=== PATIENT | female | born 1965 ===

== ENCOUNTER 2018-01-09 16:40 | Emergency (ER) | payer SELFPAY ==
[2018-01-09 17:55] VITALS: RESP 18
--- NOTE | 2018-01-09 18:05 | ED PDOC ---
Arrival/HPI - General Chief Complaint: Chest Pain Time Seen by Provider: 01/09/18 17:15 Historian: Patient EM Caveat: Acuity of Condition - History of Present Illness Narrative History of Present Illness (Text): 01/09/18 17:59 Pt is a 52 yr old female with HTN and Psoriasis, who presents today with dizziness, chest and neck pain on and off for the past week. Pt reports that she has felt weakness associated with the neck pain and chest pain feels heavy at times typically at rest and better on exertion. She reports that she lost her spouse suddenly last year around this time and was in the [facility] recently to visit his grave site. Pt becomes very emotional as she talks about her loss and states she is still very sad. Denies change in appetite fever, shortness of breath, LE edema, GIB, dysuria, tinnitus, back or neck pathology, syncope, nausea, vomiting or diarrhea. Time/Duration: 1 week Symptom Onset: Gradual Symptom Course: Unchanged Severity Level: 3 Activities at Onset: Rest Context: Home Past Medical History - Provider Review Nursing Documentation Reviewed: Yes - Travel History Have you recently traveled outside [place] w/in the past 3 mons?: No - Cardiac Hx Hypertension: Yes - Psychiatric Hx Substance Use: No - Anesthesia Hx Anesthesia: No Hx Anesthesia Reactions: No Hx Malignant Hyperthermia: No Family/Social History - Physician Review Nursing Documentation Reviewed: Yes Family/Social History: Unknown Family HX Smoking Status: Never Smoked Hx Alcohol Use: No Hx Substance Use: No Allergies/Home Meds Allergies/Adverse Reactions: Allergies No Known Allergies Allergy (Verified 01/09/18 17:42) Home Medications: Home Meds Medication Instructions Recorded Confirmed Aspirin [Ecotrin] 81 mg PO DAILY 01/09/18 01/09/18 Enalapril Maleate [Vasotec] 2.5 mg PO DAILY 01/09/18 01/09/18 Vit D3-Vit K/Berberine/Hops 1 tab PO QWK 01/09/18 01/09/18 [Ostera Tablet] Review of Systems - Review of Systems Constitutional: Normal, Fatigue Eyes: Normal. absent: Vision Changes ENT: Normal. absent: Tinnitus Respiratory: Normal Cardiovascular: Chest Pain. absent: Palpitations, Edema, Calf Pain Gastrointestinal: Normal Genitourinary Female: Normal Musculoskeletal: Normal Skin: Normal Neurological: Headache, Dizziness Endocrine: Normal Hemo/Lymphatic: Normal Psychiatric: Normal, Anxiety Physical Exam Vital Signs Reviewed: Yes Vital Signs Temp Pulse Resp BP Pulse Ox 01/09/18 20:54 98 F 85 18 122/84 95 01/09/18 17:51 104 H 18 161/99 H 98 Temperature: Afebrile Blood Pressure: Hypertensive Pulse: Tachycardic Respiratory Rate: Normal Appearance: Positive for: Well-Appearing, Non-Toxic, Comfortable Pain Distress: Mild Mental Status: Positive for: Alert and Oriented X 3 - Systems Exam Head: Present: Atraumatic, Normocephalic Pupils: Present: PERRL Extroacular Muscles: Present: EOMI Conjunctiva: Present: Normal Mouth: Present: Moist Mucous Membranes Neck: Present: Normal Range of Motion Respiratory/Chest: Present: Clear to Auscultation, Good Air Exchange. No: Respiratory Distress, Accessory Muscle Use Cardiovascular: Present: Regular Rate and Rhythm, Normal S1, S2. No: Murmurs Abdomen: No: Tenderness, Distention, Peritoneal Signs Back: Present: Normal Inspection Upper Extremity: Present: Normal Inspection. No: Cyanosis, Edema Lower Extremity: Present: Normal Inspection. No: Edema Neurological: Present: GCS=15, CN II-XII Intact, Speech Normal Skin: Present: Warm, Dry, Normal Color. No: Rashes Psychiatric: Present: Alert, Oriented x 3, Normal Insight, Normal Concentration Medical Decision Making ED Course and Treatment: 01/09/18 18:05 Impression Pt is a 52 yr old female with HTN and Psoriasis, who presents today with dizziness, chest and neck pain on and off for the past week. On exam, pt is emotional about her visit to the [facility] for the [facility] of bre who passed last year. She appears somewhat anxious duruing the history; no significant findings on exam; Homans sign neg and no calf tenderness ; lungs ctab and no CVA tenderness; pulses in all extremities full 2+ Working Dx: ACS, PE, infectious process ( ie UTI), electrolyte imbalance, anxiety Wells Score for PE: 3 (tachy and immobilization ie travel) PE unlikely Plan Chest pain w/u labs CXR ECG Assess and Dispo Progress note EKG reveals NSR with a rate of 100 01/09/18 20:33 CXR unremarkable Discussed finding of glucose in urine and advised pt to f/u with PCP for HbA1c Pt pulled out a recent echo report done in the [facility] that reveals left Ventricular hypertrophy; advised f/u with track manager to have on-going care Advised to stay well hydrated Followup with Primary Doctor to assess for Type II diabetes and cardiac disease ; may need MRI to asses cervical spine and physical therapy VSS and ready to d/c home - Lab Interpretations Lab Results: 01/09/18 18:11 01/09/18 18:11 Lab Results 01/09/18 18:31: Urine Color Light yellow, Urine Appearance Clear, Urine pH 6.5, Ur Specific Preston 1.010, Urine Protein Negative, Urine Glucose (UA) 250 H, Urine Ketones Negative, Urine Blood Negative, Urine Nitrate Negative, Urine Bilirubin Negative, Urine Urobilinogen 0.2, Ur Leukocyte Esterase Negative 01/09/18 18:11: Sodium 142, Potassium 4.0, Chloride 102, Carbon Dioxide 27, Anion Gap 17, BUN 11, Creatinine 0.6 L, Est GFR ( Amer) > 60, Est GFR ( Non-Af Amer) > 60, Random Glucose 98, Calcium 9.6, Magnesium 2.1, Total Bilirubin 0.2, AST 51 H, ALT 44, Alkaline Phosphatase 59, Lactate Dehydrogenase 427, Total Creatine Kinase 65, Troponin I < 0.01, Total Protein 8.6 H, Albumin 4.5, Globulin 4.1, Albumin/Globulin Ratio 1.1 01/09/18 18:11: PT 12.1, INR 1.06, APTT 34.9 01/09/18 18:11: WBC 8.2, RBC 4.30, Hgb 14.2, Hct 40.3, MCV 93.7, MCH 33.0, MCHC 35.2, RDW 12.0, Plt Count 242, MPV 9.3, Gran % 55.7, Lymph % (Auto) 33.7, Whitman % (Auto) 8.4 H, Eos % (Auto) 1.7, Baso % (Auto) 0.5, Gran # 4.58, Lymph # (Auto ) 2.8, Whitman # (Auto) 0.7 H, Eos # (Auto) 0.1, Baso # (Auto) 0.04 - RAD Interpretation Narrative RAD Interpretations (Text): 01/10/18 11:58 CXR reveals no active disease Radiology Orders: 01/09/18 17:46 CHEST PORTABLE [RAD] Stat Disposition/Present on Arrival - Present on Arrival Any Indicators Present on Arrival: Yes History of DVT/PE: No History of Uncontrolled Diabetes: No Urinary Catheter: No History of Decub. Ulcer: No History Surgical Site Infection Following: None - Disposition Have Diagnosis and Disposition been Completed?: Yes Diagnosis: Neck pain without injury Disposition: HOME/ ROUTINE Disposition Time: 20:43 Patient Plan: Discharge Condition: STABLE Discharge Instructions (ExitCare): Generalized Neck Pain (DC) Additional Instructions: Maria, thank you for letting us take care of you today. Your provider was APOLLO Onofre. You were treated for dizziness and neck pain. The emergency medical care you received today was directed at your acute symptoms. If you were prescribed any medication, please fill it and take as directed. It may take several days for your symptoms to resolve. Return to the Emergency Department if your symptoms worsen, do not improve, or if you have any other problems. Followup with Primary Doctor to assess for Type II diabetes and cardiac disease You may want to take Tylenol or Ibuprofen for neck pain which may be more related to muscle and joint pain. Please contact your doctor or call one of the physicians/clinics you have been referred to that are listed on the Patient Visit Information form that is included in your discharge packet. Bring any paperwork you were given at discharge with you along with any medications you are taking to your follow up visit. Our treatment cannot replace ongoing medical care by a primary care provider (PCP) outside of the emergency department. Thank you for allowing the [facility] team to be part of your care today. If you had an X-Ray or CT scan: A Radiologist will review the ED reading if any change in treatment is needed we will contact you. If you had a blood, urine, or wound culture: It will take several days for the results, if any change in treatment is needed we will contact you. Prescriptions: Acetaminophen [Acetaminophen Extra Strength] 500 mg PO Q6 5 Days #20 tablet Forms: [employer] ([place])
[2018-01-09 18:30] LABS: ALB/GLOB RATIO 1.1 (1.1-1.8); ALBUMIN 4.5 g/dL (3.0-4.8); ALT/SGPT 44 U/L (7-56); AST/SGOT 51 U/L (14-36); BLOOD UREA NITROGEN 11 mg/dL (7-21); CALCIUM 9.6 mg/dL (8.4-10.5); GFR AFRICAN-AMERICAN > 60; GFR NON-AFRICAN AMERICAN > 60
[2018-01-09 18:40] LABS: TROPONIN I < 0.01 ng/mL
[2018-01-09 19:10] LABS: BASO # 0.04 K/mm3 (0.0-2.0); BASO % 0.5 % (0.0-3.0); EOS # 0.1 (0.0-0.7); EOS % 1.7 % (1.5-5.0); GRAN # 4.58 (1.4-6.5); GRAN % 55.7 % (50.0-68.0); HEMOGLOBIN 14.2 g/dL (12.0-16.0); LYMPH # 2.8 (1.2-3.4); LYMPH % 33.7 % (22.0-35.0); MEAN CELL VOLUME 93.7 fl (80.0-105.0); MEAN CORPUSCULAR HGB CONC 35.2 g/dl (31.0-37.0); MEAN PLATELET VOLUME 9.3 fl (7.0-11.0); MONO # 0.7 (0.1-0.6); MONO % 8.4 % (1.0-6.0); RBC 4.3 10^6/uL (3.5-6.1); WHITE BLOOD COUNT 8.2 10^3/ul (4.5-11.0)
[2018-01-09 19:17] LABS: INR 1.06 (0.93-1.08); PARTIAL THROMBOPLASTIN TIME 34.9 Seconds (25.1-36.5); PROTHROMBIN TIME 12.1 SECONDS (9.4-12.5)
[2018-01-09 19:20] LABS: PH,URINE 6.5 (4.7-8.0); URINE BILIRUBIN NEGATIVE (NEGATIVE); URINE BLOOD NEGATIVE (NEGATIVE); URINE GLUCOSE (UA) 250 mg/dL (NEGATIVE); URINE LEUKOCYTE ESTERASE NEGATIVE Leu/uL (NEGATIVE); URINE PROTEIN NEGATIVE mg/dL (<30 mg/dL); URINE UROBILINOGEN 0.2 E.U./dL (<1 E.U./dL)
[2018-01-09 19:21] LABS: URINE APPEARANCE CLEAR (CLEAR); URINE COLOR LIGHT YELLOW (YELLOW)
[2018-01-09 21:05] VITALS: BP 122/84; PULSE 85; TEMP 98; O2SAT 95
--- NOTE | 2018-01-10 09:25 | RAD ---
HISTORY: chest pain COMPARISON: No prior. FINDINGS: LUNGS: No active pulmonary disease. PLEURA: No significant pleural effusion identified, no pneumothorax apparent. CARDIOVASCULAR: Normal. OSSEOUS STRUCTURES: No significant abnormalities. VISUALIZED UPPER ABDOMEN: Normal. OTHER FINDINGS: None. IMPRESSION: No active disease.
--- NOTE | 2018-01-10 22:44 | CARD ---
APPROVED REPORT EKG Measurement Heart [id number] <Conclusion> Normal sinus rhythm Normal ECG
== END 2018-01-09 20:54 | disposition home or self-care (01) ==
LOC: ED 16:40
DX: M54.2 Cervicalgia (principal); I10 Essential (primary) hypertension